=== PATIENT | male | born 1980 | race Caucasian/White ===

== ENCOUNTER 2017-09-20 18:28 | Emergency (ER) | payer BC ==
[~2017-09-20] VITALS: Ht 177.8 cm; Wt 81.6 kg
[2017-09-20 18:45] VITALS: BP 157/97
[2017-09-20] MEDS ORDERED: CEFTRIAXONE 500 MG VIAL ONE (21:55)
[2017-09-20] MEDS ORDERED: LIDOCAINE /MPF 1% VIAL 5 ML VIAL ONE (21:56)
[2017-09-20] MEDS ORDERED: AZITHROMYCIN 250 MG TABLET PO ONE (22:00)
[2017-09-20] MEDS ORDERED: CEFTRIAXONE 500 MG VIAL IM ONE (22:00)
[2017-09-20] MEDS ORDERED: AZITHROMYCIN 250 MG TABLET ONE (22:04)
== END 2017-09-20 23:02 | disposition home or self-care (01) ==
LOC: ER 18:31
DX: A64 Unspecified sexually transmitted disease (principal)
CPT/HCPCS: 96372; 99283; A4606; J0696; J3490; Z7610